=== PATIENT | female | born 1945 | race Caucasian/White ===

== ENCOUNTER 2020-05-09 00:35 | Emergency (ER) | payer OTHER ==
[~2020-05-09] VITALS: Ht 152.4 cm; Wt 63.5 kg
[2020-05-09] MEDS ORDERED: INDERAL LA80 MG (00:45)
[2020-05-09] MEDS ORDERED: COZAAR25 MG (00:46)
[2020-05-09] MEDS ORDERED: LANOXIN125 MCG (00:46)
[2020-05-09] MEDS ORDERED: PLAVIX75 MG (00:46)
[2020-05-09] MEDS ORDERED: LEVOTHYROXINE25 MCG (00:46)
== END 2020-05-09 12:10 | disposition home or self-care (01) ==
LOC: ER 00:35
DX: K52.9 Noninfective gastroenteritis and colitis, unspecified (principal)